=== PATIENT | male | born 1975 | race Caucasian/White ===

== ENCOUNTER 2016-05-04 09:34 | Emergency (ER) ==
[2016-05-04] MEDS ORDERED: NITROGLYCERIN SL PRN (09:52)
[2016-05-04] MEDS ORDERED: ASPIRIN PO STA (09:52)
--- NOTE | 2016-05-04 10:10 | ED EKG INTERP ---
EKG Interpretation - EKG Time of EKG reading by physician:: 09:42 EKG Read and Signed by:: Jose Vásquez EKG Interpretation (*Must complete 3 of following elements*): Normal Rate: 82 Rhythm: NSR Arthur: normal QRS: normal AL Interval: normal ST Wave: normal Attestation - Scribe Verification/Attestation Scribe:: Dimitry Haque Acting as Scribe for:: Jose Vásquez Scribe documention review:: This chart was documented by a scribe and accurately reflects the service the provider performed and the decisions made by the provider. Physician Attestation - Physician Attestation I, the provider, attest to the following statement:: Jose Vásquez Physician documentation Attestation:: This documentation recorded by the scribe accurately reflects the service I personally performed and the decisions made by me.
--- NOTE | 2016-05-04 10:10 | PROVIDER DOCUMENTATION ---
HPI-Cardiac General <Jose Vásquez - Last Filed: 05/04/16 11:32> - General Source: patient - History of Present Illness-Cardiac Quality of Pain: reports: none Severity in ED: mild Onset/Duration: gradual, 1 week ago Timing: improving, intermittent Context/Activities at Onset: reports: other (recent URI) Modifying Factors: improves with: nothing Palpitation Quality: fast/pounding heart beat History of arrythmia: reports: none Recent use of:: reports: no stimulants Nitro Today/Relief: reports: no nitro taken today Aspirin Treatment Today: reports: no aspirin today Prior Chest Pain/Cardiac Workup: reports: no prior chest pain Associated Symptoms: denies: dizziness, fatigue, nausea, shortness of breath, vomiting Similar Symptoms Previously?: Yes Recently Seen Here or By Another Healthcare Provider: Yes <Dimitry Haque - Last Filed: 05/04/16 11:44> - General Chief Complaint: Palpitations Stated Complaint: PALPITATIONS Time Seen by Provider: 05/04/16 10:04 Allergies/Adverse Reactions: Patient Allergies Allergy/AdvReac Type Severity Reaction Status Date / Time No Known Allergies Allergy Verified 05/04/16 09:58 Home Medications: Home Medication List Medication Instructions Recorded Confirmed Last Taken Type No Home Medications 05/04/16 05/04/16 Unknown History - History of Present Illness-Cardiac Nature of Presenting Problem: patient is a 40 yo M that presents with palpitations. Patient about a week ago was in [place] and had flu like symptoms( rash, cough, congestion, fever). Since then the rash has been gone but he has episodes of palpitations in which he feels his heart racing at times. denies shortness of breath (Dimitry Haque) Review of Systems - Adult - REVIEW OF SYSTEMS - ADULT Constitutional: denies: chills, fever Eyes: denies: decreased vision, blurred vision, double vision Ears, Nose, Mouth & Throat: denies: ear pain, sinus problem, throat pain, throat swelling Cardiovascular: reports: palpitations. denies: chest pain, syncope Respiratory: denies: cough, shortness of breath, wheezing Gastrointestinal: denies: diarrhea, nausea, vomiting Genitourinary: reports: no symptoms reported Musculoskeletal: reports: no symptoms reported Integumentary: reports: no symptoms reported Neurological: denies: dizziness/vertigo, seizure, syncope Psychiatric: reports: no symptoms reported Endocrine: reports: no symptoms reported Hematologic/Lymphatic: reports: no symptoms reported Allergic/Immunologic: reports: no symptoms reported All Other Systems: Reviewed and Negative <Dimitry Haque - Last Filed: 05/04/16 11:44> Past History - Adult - PAST MEDICAL HISTORY-ADULT Review of Records: reports: Old Records Reviewed, Nursing Assessment Review, Medications Reviewed - PRIOR SURGERIES/PROCEDURES Surgical/Procedure History: reports: none - IMMUNIZATION STATUS Childhood Immunizations: See Nurse Assessment Flu Vaccine: See Nurse Assessment - FAMILY HISTORY Family History: reviewed, not pertinent - SOCIAL HISTORY Smoking: non-smoker Living Situation: family <Dimitry Haque - Last Filed: 05/04/16 11:44> Physical Exam-General - PHYSICAL EXAM-ADULT Initial Vital Signs Reviewed: Yes - CONSTITUTIONAL General Appearance: alert, no apparent distress - EYES Eyes: PERRL/EOMI, pink conjunctivae - HEAD, EARS, NOSE, MOUTH & THROAT HENMT: normocephalic/atraumatic, moist mucous membranes, normal ENT inspection - NECK Neck: full range of motion, normal inspection - RESPIRATORY Respiratory: lungs clear, normal breath sounds, no respiratory distress, no accessory muscle use - CARDIOVASCULAR Cardiovascular: regular rate, rhythm, no edema, no murmur - GASTROINTESTINAL (ABDOMEN) Abdominal Exam: normal bowel sounds, non tender, soft, no organomegaly, no pulsatile mass - MUSCULOSKELETAL Back Exam: no CVA tenderness, no vertebral tenderness Extremity: normal range of motion, normal inspection, no pedal edema, normal capillary refill - SKIN Integumentary: normal color, warm/dry - NEUROLOGIC Neurologic: grossly normal, no motor/sensory deficits - PSYCHIATRIC Psych/Mental Status: normal mood/affect, normal thought content, normal thought process, oriented x 3 <Dimitry Haque - Last Filed: 05/04/16 11:44> Progress <Jose Vásquez - Last Filed: 05/04/16 11:32> - XRAY 1 XRAY Study: Chest Impression: Normal XRAY Interpretation: nad <Dimitry Haque - Last Filed: 05/04/16 11:44> - PLAN OF CARE/RESULTS Progress/Plan/Lab Results: plan of care-labs, ekg, cxr Vital Signs Temp Pulse Resp BP Pulse Ox 05/04/16 10:59 75 21 144/85 94 L 05/04/16 09:52 84 16 162/98 95 05/04/16 09:44 98.8 F 81 16 138/90 100 No Known Allergies Allergy (Verified 05/04/16 09:58) No Home Medications 05/04/16 I&O 05/03/16 05/04/16 05/05/16 06:59 06:59 06:59 Output Total 15 Balance -15 Laboratory 05/04/16 05/04/16 05/04/16 10:19 10:04 10:04 WBC RBC Hgb Hct MCV MCH MCHC RDW Std Deviation Plt Count MPV Immature Gran % (Auto) Neut % (Auto) Lymph % (Auto) [place] % (Auto) Eos % (Auto) Baso % (Auto) Immature Gran # (Auto) Neut # (Auto) Lymph # (Auto) [place] # (Auto) Eos # (Auto) Baso # (Auto) Sodium 136 Potassium 4.4 Chloride 100 Carbon Dioxide 22 L Anion Gap 14 BUN 6 L Creatinine 0.8 Estimated GFR/1.73 m2 > 60 BUN/Creatinine Ratio 8 Glucose 113 H Calculated Osmolality 270 Calcium 8.9 Total Bilirubin 0.26 AST 21 ALT 18 Alkaline Phosphatase 54 Creatine Kinase 90 Troponin T < 0.010 Total Protein 6.9 Albumin 3.8 Globulin 3.1 Albumin/Globulin Ratio 1.2 Urine Source CLEAN CATCH Urine Color YELLOW Urine Turbidity CLEAR Urine pH 7.0 Ur Specific [place] 1.018 Urine Protein NEGATIVE Ur Glucose (Stick) NEGATIVE Ur Ketones (Stick) TRACE A Urine Blood NEGATIVE Urine Nitrite NEGATIVE Urine Bilirubin NEGATIVE Urobilinogen Dipstick NORMAL Urine Leukocytes NEGATIVE Urine WBC (Auto) <10 Urine RBC (Auto) <10 U Epithel Cells (Auto) <10 Urine Bacteria (Auto) NEGATIVE 05/04/16 10:04 WBC 11.40 H RBC 4.98 Hgb 15.1 Hct 44.0 MCV 88.4 MCH 30.3 MCHC 34.3 RDW Std Deviation 12.4 Plt Count 457 H MPV 9.1 Immature Gran % (Auto) 2.6 H Neut % (Auto) 72.2 Lymph % (Auto) 14.4 L [place] % (Auto) 6.1 Eos % (Auto) 4.0 Baso % (Auto) 0.7 Immature Gran # (Auto) 0.30 H Neut # (Auto) 8.23 H Lymph # (Auto) 1.64 [place] # (Auto) 0.69 H Eos # (Auto) 0.46 Baso # (Auto) 0.08 Sodium Potassium Chloride Carbon Dioxide Anion Gap BUN Creatinine Estimated GFR/1.73 m2 BUN/Creatinine Ratio Glucose Calculated Osmolality Calcium Total Bilirubin AST ALT Alkaline Phosphatase Creatine Kinase Troponin T Total Protein Albumin Globulin Albumin/Globulin Ratio Urine Source Urine Color Urine Turbidity Urine pH Ur Specific Chase Urine Protein Ur Glucose (Stick) Ur Ketones (Stick) Urine Blood Urine Nitrite Urine Bilirubin Urobilinogen Dipstick Urine Leukocytes Urine WBC (Auto) Urine RBC (Auto) U Epithel Cells (Auto) Urine Bacteria (Auto) Orders Category Date Time Status Cardiac Monitoring DIRECTED Care 05/04/16 09:52 Active Saline Loc NOW Care 05/04/16 09:52 Active CHEST-2 VIEWS [RAD] Stat Exams 05/04/16 09:52 Taken CBC WITH ELECTRONIC DIFF [HEME] Stat Lab 05/04/16 10:04 Completed CK PROFILE [SP CHEM] Stat Lab 05/04/16 10:04 Completed COMPREHENSIVE METABOLIC PANEL [CHEM] Stat Lab 05/04/16 10:04 Completed TROPONIN T Stat Lab 05/04/16 10:04 Completed URINALYSIS W/POSS RFLX CULT [URINALYSIS] Stat Lab 05/04/16 10:19 Completed 0.9% Sodium Chloride Inj [Ns] 500 ml Med 05/04/16 11:31 Active IV 500 mls/hr Aspirin Med 05/04/16 09:52 Discontinued 325 mg PO STAT STA Nitroglycerin Sl [Nitroglycerin] Med 05/04/16 09:52 Discontinued 0.4 mg SL Q5M PRN PRN EKG [EKG] Stat Ther 05/04/16 09:38 Ordered pt will be d/c home f/u with cardiology, rx given, pt was clinically stable ( Dimitry Haque) Departure - Departure Time of Disposition Order: 11:33 Certified Medical Emergency: Emergent <Jose Vásquez - Last Filed: 05/04/16 11:32> - Departure Time of Disposition Order: 11:44 Certified Medical Emergency: Emergent <Dimitry Haque - Last Filed: 05/04/16 11:44> - Departure DIAGNOSIS: History of palpitations Disposition: HOME 01 Condition: Stable Referrals: None,PCP [Primary Care Provider] - Robson Paul MD [STAFF PHYSICIAN] - (call ) Instructions: Palpitations Attestation - Scribe Verification/Attestation Scribe:: Dimitry Haque Acting as Scribe for:: Blaze Pickard Scribe documention review:: This chart was documented by a scribe and accurately reflects the service the provider performed and the decisions made by the provider. <Dimitry Haque - Last Filed: 05/04/16 11:44> Physician Attestation - Physician Attestation I, the provider, attest to the following statement:: Blaze Pickard Physician documentation Attestation:: This documentation recorded by the scribe accurately reflects the service I personally performed and the decisions made by me. <Dimitry Haque - Last Filed: 05/04/16 11:44>
[2016-05-04 10:29] LABS: URINE CULTURE NEEDED? NO; URINE MICRO REVIEW NEEDED? NO; URINE SOURCE CLEAN CATCH
[2016-05-04 10:32] LABS: MANUAL DIFF NEEDED? NO
[2016-05-04 10:48] LABS: BASO% 0.7 % (0.0-0.8); EOS# 0.46 X1000 (0.0-0.7); HEMOGLOBIN 15.1 g/dL (14.0-18.0); IMM GRAN% 2.6 % (0.0-0.5); LYMPH# 1.64 X1000 (1.2-3.4); LYMPH% 14.4 % (20.5-51.1); MCH 30.3 PG (27-31); MCHC 34.3 g/dL (33-37); MCV 88.4 FL (81-99); MONO# 0.69 X1000 (0.11-0.59); MONO% 6.1 % (1.7-9.3); MPV 9.1 FL (7.4-10.4); NEUT% 72.2 % (42.2-75.2); PLT 457 X1000 (130-400); RBC 4.98 XMIL (4.7-6.1)
[2016-05-04 10:53] LABS: BILIRUBIN URINE NEGATIVE (NEGATIVE); BLOOD URINE NEGATIVE (NEGATIVE); COLOR YELLOW; GLUCOSE URINE NEGATIVE (NEGATIVE); LEUKOCYTES URINE NEGATIVE (NEGATIVE); NITRITE URINE NEGATIVE (NEGATIVE); PROTEIN URINE NEGATIVE (NEGATIVE); SP GRAVITY URINE 1.018; TURBIDITY URINE CLEAR (CLEAR); UROBILINOGEN URINE NORMAL (NORMAL)
[2016-05-04 10:55] LABS: UR EPITHELIAL CELLS <10 /HPF (<10); URINE BACTERIA NEGATIVE /HPF; URINE RBC <10 /HPF (<10); URINE WBC <10 /HPF (<10)
[2016-05-04 11:03] LABS: AGAP 14; ALBUMIN 3.8 g/dL (3.5-5.0); ALKALINE PHOSPHATASE 54 U/L (32-122); BUN 6 mg/dL (8-22); CALCIUM 8.9 mg/dL (8.8-10.2); CHLORIDE 100 mmol/L (98-107); CK PROFILE 90 U/L (24-204); COSMO 270; GOT 21 U/L (10-34); GPT 18 U/L (10-44); POTASSIUM 4.4 mmol/L (3.5-5.1); SODIUM 136 mmol/L (136-145); TCO2 22 mmol/L (25-35); TOTAL BILIRUBIN 0.26 mg/dL (0.20-1.00); TOTAL PROTEIN 6.9 g/dL (6.3-8.3)
[2016-05-04] MEDS ORDERED: NS 500 ML IV ONE (11:31)
--- NOTE | 2016-05-04 11:53 | Diag Imaging Result Document ---
PROCEDURE NAME: CHEST-2 VIEWS - 05/04/2016 FRONTAL AND LATERAL CHEST, TWO VIEWS: COMPARISON: 07/27/2011. FINDINGS: Poor inspiratory effort. The heart is borderline mildly prominent. The vessels are not distended. No pneumonia. No pleural effusions. No free air beneath the diaphragm. Mild scoliosis. IMPRESSION: Borderline mildly prominent heart, otherwise negative exam.
[2016-05-04 12:03] VITALS: BP 126/78
--- NOTE | 2016-05-04 12:54 | EKG Report ---
Test Performed on : 05/04/2016 09:42:25 AM Test Reason : palpitations Blood Pressure : / mmHG Vent. Rate : 082 BPM Atrial Rate : 082 BPM P-R Int : 138 ms QRS Dur : 090 ms QT Int : 374 ms P-R-T Axes : 029 018 021 degrees QTc Int : 436 ms Normal sinus rhythm. Normal ECG When compared with ECG of 31-OCT-2007 10:48, No significant change was found Unconfirmed Result
== END 2016-05-04 12:03 | disposition home or self-care (01) ==
LOC: ED 09:34
DX: R00.2 Palpitations (principal)
CPT/HCPCS: 71020; 80053; 81001; 82550; 84484; 85025; 93005